=== PATIENT | female | born 1950 | race Hispanic/Latino ===

== ENCOUNTER 2018-01-18 22:21 | Emergency (ER) | payer MEDICARE ==
[2018-01-18] MEDS ORDERED: Adacel (T-DAP) 0.5 ML VIAL ONE (22:53)
[2018-01-18] MEDS ORDERED: HYDROcodone/Acetaminophen 5/325 mg Tablet ONE (23:03)
[2018-01-18] MEDS ORDERED: Lidocaine 1% PF 5 ML VIAL ONE (23:03)
--- NOTE | 2018-01-18 23:30 | RAD ---
THREE VIEWS RIGHT SHOULDER: 01/18/18 HISTORY: Right shoulder injury. Patient states right shoulder and right thumb pain after a fall tonight. Patie nt fell over a pipe. FINDINGS: There is mild right acromioclavicular joint osteoarthritis. No obvious fracture or dislocation is see n. There is increased interstitial densities within the right hemithorax which could be related to ch ronic lung changes, but this would be better assessed with chest x-ray. Degenerative changes are seen in the visualized cervical as well as thoracic spine. IMPRESSION: 1. No acute osseous abnormality. 2. Mild right acromioclavicular joint osteoarthritis. 3. Suggested increased interstitial densities in the right hemithorax. This may be projectional or secondary to chronic lung changes, but a more acute process cannot be entirely excluded. Depending on clinical concern, chest x-ray can be performed for further evaluation. POS: [facility]
--- NOTE | 2018-01-18 23:39 | RAD ---
THREE VIEWS RIGHT HAND 01/18/18 HISTORY: Patient fell over a pipe tonight and has right thumb pain and shoulder pain. FINDINGS: There is a remote fracture and deformity of the distal right radial metaphysis. There is irregularity involving the base of the distal phalanx of the thumb which may represent a subtle nondisplaced frac ture at the base of the distal right thumb. Correlation for point tenderness in this region is recomm ended. No additional acute fracture, dislocation is seen. There is osteoarthritis involving the inter phalangeal joints. IMPRESSION: 1. Mild irregularity involving the distal phalanx right thumb which may represent a nondisplaced fracture. Correlation for point tenderness in this region is recommended. 2. Remote fracture and deformity involving the distal right radial metaphysis. POS: [facility]
[2018-01-18] MEDS ORDERED: CEFAZOLIN/Water 2 GM/20 ML SYRINGE ONE ×2 (23:53→23:55)
[2018-01-19] MEDS ORDERED: Lidocaine 1% (PF) 30 ML VIAL ONE (00:13)
--- NOTE | 2018-01-19 08:42 | RAD ---
CHEST 2 VIEWS: Date: 01/18/18 HISTORY: Fall. Chest injury. Abnormal shoulder radiograph. FINDINGS: Cardiac silhouette is upper limits of normal in size. Pulmonary vasculature is slightly engorged with widespread reticulonodular interstitial prominence. Mediastinum is midline. No confluent air space c onsolidation, pneumothorax, or pleural fluid. IMPRESSION: Widespread mild reticulonodular prominence is favored to be related to borderline pulmonary vascular congestion. No lobar consolidation is apparent. POS: [facility]
== END 2018-01-19 01:17 | disposition home or self-care (01) ==
LOC: ERS 22:21
DX: Z87.891 Personal history of nicotine dependence; I10 Essential (primary) hypertension; S62.524A Nondisplaced fracture of distal phalanx of right thumb, initial encounter for closed fracture; W01.198A Fall on same level from slipping, tripping and stumbling with subsequent striking against other object, initial encounter; S52.501A Unspecified fracture of the lower end of right radius, initial encounter for closed fracture
CPT/HCPCS: 12001; 29125; 71046; 90471; 90715; 96374; J2001